=== PATIENT | female | born 1995 | race Caucasian/White ===

== ENCOUNTER 2023-03-05 20:31 | Inpatient (IN) | payer BC ==
[~2023-03-05] VITALS: Ht 170.2 cm; Wt 55.3 kg
[2023-03-05 21:13] LABS: APPEARANCE,URINE SLIGHTLY CLOUDY (CLEAR); BILIRUBIN,URINE NEGATIVE (NEGATIVE); BLOOD, URINE NEGATIVE Ery/uL (NEGATIVE); COLOR,URINE YELLOW (YELLOW); KETONES,URINE TRACE mg/dL (NEGATIVE); LEUKOCYTE ESTERASE ,URINE NEGATIVE (NEGATIVE); NITRITE, URINE NEGATIVE (NEGATIVE); PH,URINE 6.5 (5.0-8.0); PROTEIN,URINE TRACE mg/dl (NEGATIVE); UGLUCOSE NEGATIVE (NEGATIVE); UROBILINOGEN,URINE 0.2 EU/dL (0.2)
[2023-03-05 21:19] LABS: PREGNANCY TEST URINE QUAL NEGATIVE (NEGATIVE)
[2023-03-05 21:28] LABS: ADD URINE CULTURE NO; BACTERIA,URINE None seen /HPF (None Seen); MUCUS,URINE Few /LPF (None Seen); RBC,URINE NONE SEEN /HPF (0-2); WBC,URINE 0-2 /HPF (0-3)
[2023-03-05 21:59] LABS: BASOPHILS # (AUTO) 0.1 K/uL (0.0-0.2); BASOPHILS % (AUTO) 0.6 % (0.0-2.0); EOSINOPHILS # (AUTO) 0.2 K/uL (0.0-0.7); HEMATOCRIT 35 % (33-45); HEMOGLOBIN 11.4 g/dL (11.5-14.8); LYMPHOCYTES # (AUTO) 3.4 K/uL (0.8-4.8); LYMPHOCYTES % (AUTO) 37.4 % (20.0-44.0); MEAN CORPUSCULAR HEMOGLOBIN 27 PG (26.0-33.0); MEAN CORPUSCULAR HGB CONC 33 g/dl (31.0-36.0); MEAN CORPUSCULAR VOLUME 84 fL (82-100); MONOCYTES # (AUTO) 0.6 K/uL (0.1-1.30); MONOCYTES % (AUTO) 6.5 % (2.0-12.0); NEUTROPHILS # (AUTO) 4.9 K/uL (1.8-8.9); NEUTROPHILS % (AUTO) 53.5 % (43.0-81.0); PLATELET COUNT (AUTO) 364 K/uL (150-450); RED BLOOD CELL COUNT(AUTO) 4.19 MIL/uL (4.0-5.2); RED CELL DISTRIBUTION WIDTH 16.6 % (11.5-15.0); WHITE BLOOD COUNT (AUTO) 9.2 K/uL (4.3-11.0)
[2023-03-05 22:13] LABS: ALBUMIN 3.5 g/dL (3.4-5.0); BILIRUBIN,DIRECT 0.1 mg/dL (0.0-0.2); BILIRUBIN,TOTAL 0.1 mg/dL (0.2-1.0); CALCIUM, SERUM 9.1 mg/dL (8.5-10.1); CREATININE 0.8 mg/dL (0.6-1.3); TOTAL PROTEIN, SERUM 6.9 g/dL (6.4-8.2)
[2023-03-05] MEDS ORDERED: MORPHINE SULFATE INJ 2 MG/ML DISP.SYRIN IV ONE (22:30)
[2023-03-05] MEDS ORDERED: ONDANSETRON HCL/PF 4 MG/2 ML VIAL IVP ONE (22:30)
[2023-03-05] MEDS ORDERED: IV NS 0.9% 1,000 ML BAG IV ONE (22:30)
[2023-03-05] MEDS ORDERED: MORPHINE SULFATE INJ 4 MG/ML DISP.SYRIN ONE (22:39)
[2023-03-05] MEDS ORDERED: ONDANSETRON HCL/PF 4 MG/2 ML VIAL ONE ×2 (22:39→23:39)
[2023-03-05] MEDS ORDERED: POTASSIUM CHLORIDE 20 MEQ TAB.PRT.SR PO ONE ×2 (23:27→23:30)
[2023-03-05] MEDS ORDERED: METRONIDAZOLE 500MG/ NS 100ML 100 ML IV ONE (23:38)
[2023-03-05] MEDS ORDERED: CIPROFLOXACIN IV RTU 200 ML IV ONE (23:39)
[2023-03-05] MEDS ORDERED: MORPHINE SULFATE INJ 2 MG/ML DISP.SYRIN ONE (23:51)
[2023-03-06] MEDS ORDERED: ONDANSETRON HCL/PF 4 MG/2 ML VIAL IV ONE
[2023-03-06] MEDS ORDERED: CIPROFLOXACIN IV RTU 400 MG in PREMIX 1 EA IV SCH ×2
[2023-03-06] MEDS ORDERED: MORPHINE SULFATE INJ 2 MG/ML DISP.SYRIN IV ONE
[2023-03-06] MEDS ORDERED: FLAGYL/NS RTU 500 MG/100 ML PIGGYBACK IV ONE
[2023-03-06] MEDS ORDERED: HYDROCODONE/APAP 5/325MG TABLET PO PRN (00:30)
[2023-03-06] MEDS ORDERED: ZOLPIDEM TARTRATE 5 MG TABLET PO PRN (00:30)
[2023-03-06] MEDS ORDERED: MAG HYDROX/AL HYDROX/SIMETH 30 ML UDC PO PRN (00:30)
[2023-03-06] MEDS ORDERED: Z GUARD REMEDY 4 OZ OINT TP PRN (00:30)
[2023-03-06] MEDS ORDERED: ONDANSETRON HCL/PF 4 MG/2 ML VIAL IVP PRN (00:30)
[2023-03-06] MEDS ORDERED: MAGNESIUM HYDROXIDE 30 ML UDC PO PRN (00:30)
[2023-03-06] MEDS ORDERED: ACETAMINOPHEN 325 MG TABLET PO PRN (00:30)
[2023-03-06] MEDS ORDERED: METOCLOPRAMIDE HCL 10 MG/2 ML VIAL ONE (01:12)
[2023-03-06] MEDS: METOCLOPRAMIDE HCL 10 MG/2 ML VIAL IV PRN ×3 (01:15→15:28)
[2023-03-06] MEDS: MORPHINE SULFATE INJ 4 MG/ML DISP.SYRIN IV PRN ×2 (03:31→07:31)
[2023-03-06] MEDS: IV NS 0.9% 1,000 ML IV PRN ×2 (03:41→23:46)
[2023-03-06 04:32] VITALS: BP 117/71; TEMP 98.6; O2SAT 100
[2023-03-06 06:56] LABS: BASOPHILS % (AUTO) 0.6 % (0.0-2.0); EOSINOPHILS # (AUTO) 0.2 K/uL (0.0-0.7); EOSINOPHILS % (AUTO) 3.2 % (0.0-6.0); HEMATOCRIT 31 % (33-45); HEMOGLOBIN 10.1 g/dL (11.5-14.8); LYMPHOCYTES # (AUTO) 3.5 K/uL (0.8-4.8); LYMPHOCYTES % (AUTO) 46.3 % (20.0-44.0); MEAN CORPUSCULAR HEMOGLOBIN 27 PG (26.0-33.0); MEAN CORPUSCULAR HGB CONC 33 g/dl (31.0-36.0); MEAN CORPUSCULAR VOLUME 84 fL (82-100); MONOCYTES # (AUTO) 0.6 K/uL (0.1-1.30); MONOCYTES % (AUTO) 7.4 % (2.0-12.0); NEUTROPHILS # (AUTO) 3.2 K/uL (1.8-8.9); NEUTROPHILS % (AUTO) 42.5 % (43.0-81.0); PLATELET COUNT (AUTO) 317 K/uL (150-450); RED BLOOD CELL COUNT(AUTO) 3.71 MIL/uL (4.0-5.2); RED CELL DISTRIBUTION WIDTH 16.3 % (11.5-15.0); WHITE BLOOD COUNT (AUTO) 7.6 K/uL (4.3-11.0)
[2023-03-06 07:16] LABS: CALCIUM, SERUM 7.9 mg/dL (8.5-10.1); CREATININE 0.6 mg/dL (0.6-1.3); MAGNESIUM 1.9 mg/dL (1.8-2.4); PHOSPHORUS 3.9 mg/dL (2.5-4.9)
[2023-03-06 07:27] LABS: POTASSIUM 2.8 mmol/L (3.5-5.1)
[2023-03-06 08:00] VITALS: BP 97/65; TEMP 97.9; O2SAT 97
[2023-03-06] MEDS: METRONIDAZOLE 500MG/ NS 100ML 500 MG in PREMIX 1 EA IV SCH ×2 (08:16→15:29)
[2023-03-06] MEDS: PANTOPRAZOLE 40 MG VIAL IV SCH (09:13)
[2023-03-06] MEDS: MESALAMINE 400 MG CAP PO SCH ×2 (09:19→17:00)
[2023-03-06] MEDS ORDERED: HYDROMORPHONE 1 MG/1 ML DISP.SYRIN IV PRN (09:30)
[2023-03-06] MEDS: POTASSIUM CL. PREMIX PERIPHER. 50 ML IV SCH ×4 (11:23→15:28)
[2023-03-06] MEDS ORDERED: BUPR-319 PO (11:41)
[2023-03-06] MEDS ORDERED: ZOLP10TA2 PO (11:41)
[2023-03-06] MEDS ORDERED: LEVO112T2 PO (11:41)
[2023-03-06] MEDS ORDERED: ALPR1TAB7 PO (11:41)
[2023-03-06] MEDS ORDERED: FLUV100T3 PO (11:41)
[2023-03-06] MEDS: HYDROMORPHONE INJ 2 MG/ML DISP.SYRIN IV PRN ×4 (12:36→21:39)
[2023-03-06] MEDS: CIPROFLOXACIN IV RTU 400 MG in PREMIX 1 EA IV SCH (13:49)
[2023-03-06] MEDS: methylPREDNISolone SOD SUCC 40 MG/ML VIAL IV SCH ×2 (15:18→20:36)
[2023-03-06 16:00] VITALS: BP 102/69; TEMP 97.9; O2SAT 96
[2023-03-06 17:40] LABS: HEMOGLOBIN 9.8 g/dL (11.5-14.8)
[2023-03-06 20:00] VITALS: BP 110/63; TEMP 98.4; O2SAT 94
[2023-03-06] MEDS: FLUVOXAMINE MALEATE 50 MG TABLET PO SCH (20:36)
[2023-03-06] MEDS: ZOLPIDEM TARTRATE 10 MG TABLET PO PRN (20:36)
[2023-03-07] MEDS: PROCHLORPERAZINE EDISYLATE 10 MG/2 ML VIAL IM PRN (00:22)
[2023-03-07] MEDS: METRONIDAZOLE 500MG/ NS 100ML 500 MG in PREMIX 1 EA IV SCH ×3 (00:23→15:16)
[2023-03-07] MEDS: HYDROMORPHONE INJ 2 MG/ML DISP.SYRIN IV PRN ×8 (00:40→22:44)
[2023-03-07] MEDS: CIPROFLOXACIN IV RTU 400 MG in PREMIX 1 EA IV SCH ×2 (01:32→13:00)
[2023-03-07 02:55] LABS: HEMOGLOBIN 9.5 g/dL (11.5-14.8)
[2023-03-07 04:00] VITALS: BP 113/72; TEMP 98.1; O2SAT 95
[2023-03-07 08:00] VITALS: BP 114/80; TEMP 98.8; O2SAT 100
[2023-03-07 08:05] LABS: BASOPHILS % (AUTO) 0.3 % (0.0-2.0); EOSINOPHILS % (AUTO) 0.1 % (0.0-6.0); HEMATOCRIT 31 % (33-45); HEMOGLOBIN 9.8 g/dL (11.5-14.8); LYMPHOCYTES # (AUTO) 1.6 K/uL (0.8-4.8); LYMPHOCYTES % (AUTO) 24.3 % (20.0-44.0); MEAN CORPUSCULAR HEMOGLOBIN 27 PG (26.0-33.0); MEAN CORPUSCULAR HGB CONC 32 g/dl (31.0-36.0); MEAN CORPUSCULAR VOLUME 85 fL (82-100); MONOCYTES # (AUTO) 0.4 K/uL (0.1-1.30); MONOCYTES % (AUTO) 6.5 % (2.0-12.0); NEUTROPHILS # (AUTO) 4.4 K/uL (1.8-8.9); NEUTROPHILS % (AUTO) 68.8 % (43.0-81.0); PLATELET COUNT (AUTO) 304 K/uL (150-450); RED BLOOD CELL COUNT(AUTO) 3.61 MIL/uL (4.0-5.2); RED CELL DISTRIBUTION WIDTH 15.9 % (11.5-15.0); WHITE BLOOD COUNT (AUTO) 6.4 K/uL (4.3-11.0)
[2023-03-07] MEDS: LEVOTHYROXINE SODIUM 112 MCG TABLET PO SCH (08:11)
[2023-03-07] MEDS: PANTOPRAZOLE 40 MG VIAL IV SCH (08:12)
[2023-03-07] MEDS: methylPREDNISolone SOD SUCC 40 MG/ML VIAL IV SCH ×2 (08:12→21:07)
[2023-03-07] MEDS: MESALAMINE 400 MG CAP PO SCH ×2 (08:12→16:19)
[2023-03-07] MEDS: BUPROPION XL 150 MG TAB.ER.24 PO SCH (08:12)
[2023-03-07] MEDS: FLUVOXAMINE MALEATE 50 MG TABLET PO SCH ×2 (08:13→21:07)
[2023-03-07 08:34] LABS: CALCIUM, SERUM 8.5 mg/dL (8.5-10.1); CREATININE 0.6 mg/dL (0.6-1.3); PHOSPHORUS 3.7 mg/dL (2.5-4.9); POTASSIUM 3.6 mmol/L (3.5-5.1)
[2023-03-07 10:41] LABS: HEMOGLOBIN 9.8 g/dL (11.5-14.8)
[2023-03-07] MEDS: METOCLOPRAMIDE HCL 10 MG/2 ML VIAL IV PRN (13:15)
[2023-03-07 16:00] VITALS: BP 115/78; TEMP 98.2; O2SAT 100
[2023-03-07 18:20] LABS: HEMOGLOBIN 9.6 g/dL (11.5-14.8)
[2023-03-07 20:00] VITALS: BP 101/66; TEMP 99.3; O2SAT 97
[2023-03-07 20:48] VITALS: BP 101/66; TEMP 99; O2SAT 97
[2023-03-07] MEDS: ZOLPIDEM TARTRATE 10 MG TABLET PO PRN (21:07)
[2023-03-08] MEDS: METRONIDAZOLE 500MG/ NS 100ML 500 MG in PREMIX 1 EA IV SCH ×3 (00:15→16:06)
[2023-03-08] MEDS: IV NS 0.9% 1,000 ML IV PRN (00:21)
[2023-03-08] MEDS: CIPROFLOXACIN IV RTU 400 MG in PREMIX 1 EA IV SCH ×2 (01:17→13:05)
[2023-03-08] MEDS: HYDROMORPHONE INJ 2 MG/ML DISP.SYRIN IV PRN ×8 (01:52→22:54)
[2023-03-08 03:08] LABS: HEMOGLOBIN 8.9 g/dL (11.5-14.8)
[2023-03-08 04:00] VITALS: BP 103/63; TEMP 98.6; O2SAT 97
[2023-03-08 04:54] VITALS: BP 103/63; TEMP 98.6; O2SAT 97
[2023-03-08] MEDS: METOCLOPRAMIDE HCL 10 MG/2 ML VIAL IV PRN ×2 (06:27→19:50)
[2023-03-08] MEDS: LEVOTHYROXINE SODIUM 112 MCG TABLET PO SCH (07:49)
[2023-03-08 08:00] VITALS: BP 97/54; TEMP 98; TEMP 98.6; O2SAT 96; O2SAT 97
[2023-03-08] MEDS: methylPREDNISolone SOD SUCC 40 MG/ML VIAL IV SCH ×2 (09:16→21:05)
[2023-03-08] MEDS: PANTOPRAZOLE 40 MG VIAL IV SCH (09:16)
[2023-03-08] MEDS: MESALAMINE 400 MG CAP PO SCH ×2 (09:16→16:07)
[2023-03-08] MEDS: FLUVOXAMINE MALEATE 50 MG TABLET PO SCH ×2 (09:16→21:05)
[2023-03-08] MEDS: BUPROPION XL 150 MG TAB.ER.24 PO SCH (09:17)
[2023-03-08 11:48] LABS: HEMOGLOBIN 9.1 g/dL (11.5-14.8)
[2023-03-08] MEDS: ALPRAZOLAM 1 MG TABLET PO PRN (15:47)
[2023-03-08 16:00] VITALS: BP 117/73; TEMP 98; O2SAT 97
[2023-03-08 18:15] LABS: HEMOGLOBIN 9.3 g/dL (11.5-14.8)
[2023-03-08 20:00] VITALS: BP 120/80; TEMP 98.1; O2SAT 97
[2023-03-08] MEDS: ZOLPIDEM TARTRATE 10 MG TABLET PO PRN (21:05)
[2023-03-08] MEDS: METRONIDAZOLE 500 MG TABLET PO SCH (21:05)
[2023-03-08] MEDS: CIPROFLOXACIN HCL 500 MG TABLET PO SCH (21:05)
[2023-03-09] MEDS: HYDROMORPHONE INJ 2 MG/ML DISP.SYRIN IV PRN ×7 (01:54→20:45)
[2023-03-09] MEDS: METOCLOPRAMIDE HCL 10 MG/2 ML VIAL IV PRN ×2 (03:30→10:59)
[2023-03-09 04:00] VITALS: BP 122/80; TEMP 97.2; O2SAT 97
[2023-03-09] MEDS: METRONIDAZOLE 500 MG TABLET PO SCH ×3 (05:13→13:59)
[2023-03-09 07:01] LABS: BASOPHILS % (AUTO) 0.3 % (0.0-2.0); HEMATOCRIT 29 % (33-45); HEMOGLOBIN 9.4 g/dL (11.5-14.8); LYMPHOCYTES # (AUTO) 1.1 K/uL (0.8-4.8); LYMPHOCYTES % (AUTO) 17.7 % (20.0-44.0); MEAN CORPUSCULAR HEMOGLOBIN 27 PG (26.0-33.0); MEAN CORPUSCULAR HGB CONC 32 g/dl (31.0-36.0); MEAN CORPUSCULAR VOLUME 85 fL (82-100); MONOCYTES # (AUTO) 0.4 K/uL (0.1-1.30); MONOCYTES % (AUTO) 6.8 % (2.0-12.0); NEUTROPHILS # (AUTO) 4.9 K/uL (1.8-8.9); NEUTROPHILS % (AUTO) 75.2 % (43.0-81.0); PLATELET COUNT (AUTO) 281 K/uL (150-450); RED BLOOD CELL COUNT(AUTO) 3.42 MIL/uL (4.0-5.2); RED CELL DISTRIBUTION WIDTH 16.1 % (11.5-15.0); WHITE BLOOD COUNT (AUTO) 6.5 K/uL (4.3-11.0)
[2023-03-09 07:02] LABS: CALCIUM, SERUM 8.4 mg/dL (8.5-10.1); CREATININE 0.7 mg/dL (0.6-1.3); PHOSPHORUS 3.1 mg/dL (2.5-4.9); POTASSIUM 3.4 mmol/L (3.5-5.1)
[2023-03-09 08:00] VITALS: BP 129/86; TEMP 97.7; O2SAT 97
[2023-03-09] MEDS: LEVOTHYROXINE SODIUM 112 MCG TABLET PO SCH (08:01)
[2023-03-09] MEDS: POTASSIUM CHLORIDE 20 MEQ TAB.PRT.SR PO ONE ×2 (08:30→09:13)
[2023-03-09] MEDS: methylPREDNISolone SOD SUCC 40 MG/ML VIAL IV SCH ×2 (09:13→20:46)
[2023-03-09] MEDS: BUPROPION XL 150 MG TAB.ER.24 PO SCH (09:13)
[2023-03-09] MEDS: MESALAMINE 400 MG CAP PO SCH ×2 (09:13→17:41)
[2023-03-09] MEDS: CIPROFLOXACIN HCL 500 MG TABLET PO SCH (09:14)
[2023-03-09] MEDS: PANTOPRAZOLE 40 MG VIAL IV SCH (09:14)
[2023-03-09] MEDS: FLUVOXAMINE MALEATE 50 MG TABLET PO SCH ×2 (09:16→20:46)
[2023-03-09] MEDS: POTASSIUM CL. PREMIX PERIPHER. 50 ML IV SCH ×4 (10:24→13:53)
[2023-03-09] MEDS: CIPROFLOXACIN IV RTU 400 MG in PREMIX 1 EA IV SCH ×2 (10:24→22:18)
[2023-03-09] MEDS: ALPRAZOLAM 1 MG TABLET PO PRN (14:03)
[2023-03-09] MEDS: METRONIDAZOLE 500MG/ NS 100ML 500 MG in PREMIX 1 EA IV SCH ×2 (15:02→22:55)
[2023-03-09 18:00] VITALS: BP 125/74; TEMP 98.1; O2SAT 97
[2023-03-09] MEDS: ZOLPIDEM TARTRATE 10 MG TABLET PO PRN (19:51)
[2023-03-09 20:00] VITALS: BP 107/64; TEMP 98.4; O2SAT 97
[2023-03-09] MEDS: IV NS 0.9% 1,000 ML IV PRN (22:26)
[2023-03-10] MEDS: HYDROMORPHONE INJ 2 MG/ML DISP.SYRIN IV PRN ×4 (00:04→09:34)
[2023-03-10 04:00] VITALS: BP 110/65; TEMP 97.6; O2SAT 100
[2023-03-10] MEDS: METRONIDAZOLE 500MG/ NS 100ML 500 MG in PREMIX 1 EA IV SCH (05:49)
[2023-03-10] MEDS: METOCLOPRAMIDE HCL 10 MG/2 ML VIAL IV PRN (06:19)
[2023-03-10 06:51] LABS: BASOPHILS % (AUTO) 0.6 % (0.0-2.0); HEMATOCRIT 31 % (33-45); HEMOGLOBIN 10.1 g/dL (11.5-14.8); LYMPHOCYTES % (AUTO) 14.8 % (20.0-44.0); MEAN CORPUSCULAR HEMOGLOBIN 27 PG (26.0-33.0); MEAN CORPUSCULAR HGB CONC 32 g/dl (31.0-36.0); MEAN CORPUSCULAR VOLUME 84 fL (82-100); MONOCYTES # (AUTO) 0.5 K/uL (0.1-1.30); MONOCYTES % (AUTO) 7.4 % (2.0-12.0); NEUTROPHILS # (AUTO) 5.2 K/uL (1.8-8.9); NEUTROPHILS % (AUTO) 77.2 % (43.0-81.0); PLATELET COUNT (AUTO) 302 K/uL (150-450); RED CELL DISTRIBUTION WIDTH 16.4 % (11.5-15.0); WHITE BLOOD COUNT (AUTO) 6.7 K/uL (4.3-11.0)
[2023-03-10 07:04] LABS: CALCIUM, SERUM 8.6 mg/dL (8.5-10.1); CREATININE 0.6 mg/dL (0.6-1.3); MAGNESIUM 2.2 mg/dL (1.8-2.4); PHOSPHORUS 2.8 mg/dL (2.5-4.9); POTASSIUM 3.6 mmol/L (3.5-5.1)
[2023-03-10 08:00] VITALS: BP 119/76; TEMP 98.4; O2SAT 97
[2023-03-10] MEDS: methylPREDNISolone SOD SUCC 40 MG/ML VIAL IV SCH (08:48)
[2023-03-10] MEDS: MESALAMINE 400 MG CAP PO SCH (08:48)
[2023-03-10] MEDS: BUPROPION XL 150 MG TAB.ER.24 PO SCH (08:48)
[2023-03-10] MEDS: LEVOTHYROXINE SODIUM 112 MCG TABLET PO SCH (08:49)
[2023-03-10] MEDS: FLUVOXAMINE MALEATE 50 MG TABLET PO SCH (08:51)
[2023-03-10] MEDS ORDERED: PANTOPRAZOLE 40 MG TABLET.DR PO SCH (09:00)
[2023-03-10] MEDS: CIPROFLOXACIN IV RTU 400 MG in PREMIX 1 EA IV SCH (09:29)
[2023-03-10] MEDS: PROCHLORPERAZINE EDISYLATE 10 MG/2 ML VIAL IM PRN (10:41)
[2023-03-10] MEDS ORDERED: ONDANSETRON HCL 4 MG/5 ML SOLUTION PO PRN (12:00)
[2023-03-10] MEDS ORDERED: METRONIDAZOLE 500 MG TABLET PO SCH (13:00)
[2023-03-10] MEDS ORDERED: PROCHLORPERAZINE MALEATE 10 MG TABLET PO PRN (13:00)
[2023-03-10] MEDS ORDERED: CIPROFLOXACIN HCL 500 MG TABLET PO SCH (17:00)
== END 2023-03-10 14:41 | disposition home or self-care (01) | DRG 386 ==
LOC: ER 20:33 → EDBD 20:33 → MEDSG1 03-06 02:47
PROVIDERS: ADMIT Nurse Practitioner Acute Care; ATTEND Internal Medicine
PROC: 05HF33Z Insertion of Infusion Device into Left Cephalic Vein, Percutaneous Approach (ICD-10-PCS; principal; 2023-03-07)
PROC: 05HB33Z Insertion of Infusion Device into Right Basilic Vein, Percutaneous Approach (ICD-10-PCS; 2023-03-09)
DX: K50.911 Crohn's disease, unspecified, with rectal bleeding (principal); D62 Acute posthemorrhagic anemia; E87.6 Hypokalemia; R55 Syncope and collapse; Z90.49 Acquired absence of other specified parts of digestive tract
CPT/HCPCS: 36415; 80048-TC; 80076-TC; 81001; 83690-TC; 83735-TC; 84100-TC; 84703-TC; 85025-TC; 85027-TC; A4216; A4223; C9113; G0378; J0744; J0780; J1170; J2270; J2405; J2765; J2920; J3480; J7030; J7050; Q0164